=== PATIENT | male | born 1985 | race Caucasian/White ===

== ENCOUNTER 2017-07-07 18:33 | Emergency (ER) | payer OTHER ==
[2017-07-07] MEDS ORDERED: Ibuprofen TAB* 600 MG PO ONE (19:20)
--- NOTE | 2017-07-07 19:48 | RAD ---
Indication: Left wrist injury. 3 views of the wrist demonstrates no fracture. No other bone or joint abnormality is identified. No definite soft tissue injury is noted. No subcutaneous air is noted. Accessory ossicle is noted at the first metacarpal phalangeal joint. IMPRESSION: NO FRACTURE OF THE WRIST IS NOTED.
[2017-07-07] MEDS ORDERED: Amoxicillin/Clavulanate TAB* 875 MG PO ONE (20:28)
[2017-07-07 20:46] VITALS: BP 124/78
--- NOTE | 2017-07-07 21:20 | ED ---
Skin Complaint - HPI Summary HPI Summary: Patient is an otherwise healthy 31-year-old male presenting to the ED with left puncture wounds from a python bite approximately 2 hours prior to arrival. He was sent here from [facility] after evaluation and sent here to obtain a scan of the wrist. He endorses 8 out of 10 pain, worse with flexion and extension, pronation and supination. Pain is a 2 out of 10 at rest. There is some fluctuance and swelling to the right wrist directly located over where the injury took place. The Python is a Tiran Python which is nonvenomous. 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 He denies any other symptoms. There is a slight amount of ecchymosis to the dorsum of the wrist and ulnar side of the hand. - History of Current Complaint Chief Complaint: EDGeneral Time Seen by Provider: 07/07/17 18:50 Stated Complaint: SNAKE BITE Hx Obtained From: Patient Onset/Duration: Started Hours Ago Skin Exposure Onset/Duration: Hours Ago Timing: Constant Onset Severity: Moderate Current Severity: Moderate Pain Intensity: 0 Pain Scale Used: 0-10 Numeric Skin Location: Hand Character: Swelling, Pain, Redness Aggravating Symptom(s): Touch Alleviating Symptom(s): Cold Compresses Associated Signs & Symptoms: Tenderness Related History: Possible Reaction to: Animal PMH/Surg Hx/FS Hx/Imm Hx Previously Healthy: Yes - Immunization History Hx Pertussis Vaccination: No Immunizations Up to Date: Unable to Obtain/Confirm Infectious Disease History: No Infectious Disease History: Denies: Traveled Outside the [place] in Last 30 Days - Social History Occupation: Employed Full-time Lives: With Family Alcohol Use: None Hx Substance Use: No Substance Use Type: Reports: None Hx Tobacco Use: No Smoking Status (MU): Unknown if Ever Smoked Review of Systems Constitutional: Negative Negative: Fever, Chills, Fatigue, Skin Diaphoresis Eyes: Negative Cardiovascular: Negative Genitourinary: Negative Positive: no symptoms reported, see HPI Musculoskeletal: Negative Positive: Other - ecchymosis and swelling Psychological: Normal All Other Systems Reviewed And Are Negative: Yes Physical Exam Triage Information Reviewed: Yes Vital Signs On Initial Exam: Initial Vitals Temp Pulse Resp BP Pulse Ox 97.9 F 80 20 151/92 99 07/07/17 18:34 07/07/17 18:34 07/07/17 18:34 07/07/17 18:34 07/07/17 18:34 Vital Signs Reviewed: Yes Appearance: Positive: Well-Appearing, Well-Nourished Skin: Positive: Warm, Skin Color Reflects Adequate Perfusion, Other - Ecchymosis and swelling to the dorsum of the left wrist and ulnar side of the hand with small puncture wounds which are very superficial and not requiring repair Head/Face: Positive: Normal Head/Face Inspection Eyes: Positive: EOMI, GALA, Conjunctiva Clear Neck: Positive: Supple, No Lymphadenopathy Respiratory/Lung Sounds: Positive: Clear to Auscultation, Breath Sounds Present Cardiovascular: Positive: Normal, RRR, Pulses are Symmetrical in both Upper and Lower Extremities Neurological: Positive: Normal, Sensory/Motor Intact, Speech Normal Psychiatric: Positive: Normal, Affect/Mood Appropriate Diagnostics - Vital Signs Vital Signs Temp Pulse Resp BP Pulse Ox 07/07/17 20:45 98.0 F 76 17 124/78 100 07/07/17 18:34 97.9 F 80 20 151/92 99 - Laboratory Lab Statement: Any lab studies that have been ordered have been reviewed, and results considered in the medical decision making process. Course/Dx - Course Course Of Treatment: During the course of treatment, the patient is evaluated for a nonvenomous snake bite from a python approximately 2 hours prior to arrival. Xrays obtained which are negative for any crush injury or underlying injury. Slight swelling, ecchymosis and small puncture wounds are noted. He is given Augmentin 7 days. The left wrist was William wrapped to decrease swelling and for comfort. He is to ice several times per day. - Diagnoses Provider Diagnoses: Bitten by nonvenomous snake Discharge - Discharge Plan Condition: Stable Disposition: HOME Prescriptions: Amoxicillin/Clavulanate TAB* [Augmentin TAB 875*] 875 mg PO BID #13 tab traMADol TAB* [Ultram*] 50 mg PO Q8H PRN #12 tab MDD 3 PRN Reason: Pain Patient Education Materials: Snake Bite (ED) Referrals: [facility] - [place] DURAN [Primary Care Provider] - Additional Instructions: Ice to the area as much as possible Keep the William wrap applied for comfort If he develop any red streaking up or down from the wound, or develop fevers, return to the ED immediately Augmentin twice daily 7 days Images - Images Hands: 1 - Ecchymosis and swelling to the dorsum of the left wrist and ulnar side of the hand with small puncture wounds which are very superficial and not requiring repair
== END 2017-07-07 20:45 | disposition home or self-care (01) ==
LOC: ED 18:33
DX: S61.552A Open bite of left wrist, initial encounter (principal); W59.11XA Bitten by nonvenomous snake, initial encounter; Y92.89 Other specified places as the place of occurrence of the external cause
CPT/HCPCS: 99282; A9270-GY

== ENCOUNTER 2019-04-21 20:28 | Emergency (ER) | payer OTHER ==
--- NOTE | 2019-04-21 20:37 | ED ---
HPI Chest Pain - HPI Summary HPI Summary: 33-year-old male with significant past medical history of ADHD and status post ablation for SVT approximately 10 years ago since the emergency department today complaining of right-sided chest pain. 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 Patient's pain is made worse with laying supine. Patient is currently pain free and is resting comfortably on stretcher. Patient denies recent recreational drug use, alcohol use, smoking. Patient denies fever, abdominal pain, shortness of breath, pain with urination, rash, recent trauma. Family history significant for myocardial infarction. Social history is noncontributory. - History of Current Complaint Chief Complaint: EDAbdPain Hx Obtained From: Patient Timing: Intermittent, Lasting Minutes Initial Severity: Moderate Current Severity: None Pain Intensity: 0 Pain Scale Used: 0-10 Numeric Chest Pain Location: Right Lateral Chest Pain Radiates: No Character: Sharp/Stabbing Aggravating Factor(s): Position Alleviating Factor(s): Rest, Position, Oxygen, Upright Position Associated Signs and Symptoms: Positive: Negative - Allergy/Home Medications Allergies/Adverse Reactions: Allergies Allergy/AdvReac Type Severity Reaction Status Date / Time No Known Allergies Allergy Verified 12/20/18 13:26 PMH/Surg Hx/FS Hx/Imm Hx Cardiovascular History: Denies: Hx Aneurysm Respiratory History: Denies: Hx Asthma Sensory History: Denies: Hx Cataracts, Hx Deafness Opthamlomology History: Denies: Hx Cataracts Infectious Disease History: No Infectious Disease History: Denies: Traveled Outside the [place] in Last 30 Days - Family History Known Family History: Positive: None - Social History Alcohol Use: None Hx Substance Use: No Substance Use Type: Reports: None Hx Tobacco Use: No Smoking Status (MU): Never Smoked Tobacco Review of Systems Constitutional: Negative Eyes: Negative ENT: Negative Positive: Chest Pain Respiratory: Negative Gastrointestinal: Negative Genitourinary: Negative Musculoskeletal: Negative Skin: Negative Neurological: Negative Psychological: Normal All Other Systems Reviewed And Are Negative: Yes Physical Exam Triage Information Reviewed: Yes Vital Signs On Initial Exam: Initial Vitals Temp Pulse Resp BP Pulse Ox 96.9 F 70 16 133/97 96 04/21/19 20:33 04/21/19 20:33 04/21/19 20:33 04/21/19 20:33 04/21/19 20:33 Vital Signs Reviewed: Yes Appearance: Positive: Well-Appearing, No Pain Distress, Well-Nourished Skin: Positive: Warm, Skin Color Reflects Adequate Perfusion Eyes: Positive: EOMI, GALA ENT: Positive: Hearing grossly normal Respiratory/Lung Sounds: Positive: Clear to Auscultation, Breath Sounds Present Cardiovascular: Positive: RRR, S1, S2 Abdomen Description: Positive: Nontender, Soft, Other: - negative murphys sign. Negative: Distended, Guarding Bowel Sounds: Positive: Present Musculoskeletal: Positive: Strength/ROM Intact Neurological: Positive: Sensory/Motor Intact, Alert, Oriented to Person Place, Time, Normal Gait, Speech Normal Psychiatric: Positive: Normal AVPU Assessment: Alert Procedures - Sedation Patient Received Moderate/Deep Sedation with Procedure: No Diagnostics - Vital Signs Vital Signs Temp Pulse Resp BP Pulse Ox 04/21/19 20:33 96.9 F 70 16 133/97 96 - Laboratory Result Diagrams: 04/21/19 20:51 04/21/19 20:51 Lab Statement: Any lab studies that have been ordered have been reviewed, and results considered in the medical decision making process. Chest Pain Course/Dx - Course Course Of Treatment: The patient was evaluated in the emergency department for chest pain. An EKG was done which showed no evidence of myocardial Labs returned showing no leukocytosis, anemia,electrolyte abnormalities, normal blood glucose. TSH WNL. Troponin was 0.00. Serial troponins considered unnecessary as the likelihood of myocardial infarction was very low considering heart score. HEART score 1. PERC negative. Chest x-ray was not obtained due to patients lack of shortness of breath, cough, fever, hypoxia. Dr. Browning was involved in the case and agreed that Patients symptoms appear to be nonlife threatening and not requiring acute intervention at this time. He is to follow- up with his primary care provider in 3-5 days for further evaluation and management. - Chest Pain Differential Diagnosis/HQI/PQRI: Acute PA, ACS, Angina, CHF, Chest Wall, Pulmonary Edema, Pulmonary Embolism - Diagnoses Provider Diagnoses: Chest pain Discharge ED - Sign-Out/Discharge Documenting (check all that apply): Patient Departure - Discharge Plan Condition: Stable Disposition: HOME Patient Education Materials: Chest Pain (ED) Referrals: [facility] - [place] DURAN [Farooq., APPLICATION, OTHER] - 3 Days Additional Instructions: You were seen in the emergency department today for chest pain. There appears to be no life threatening pathology causing your symptoms which requires intervention at this time. I am unsure what's causing your symptoms however, cardiac origin cannot be ruled out. Please follow up with your primary care provider or poem writer for further evaluation and management of your symptoms and for possible outpatient echocardiogram and stress test. Please return to the emergency department immediately if you develop any new or worsening symptoms. - Billing Disposition and Condition Condition: STABLE Disposition: Home
[2019-04-21 20:57] LABS: ABS Basophils 0.1 10^3/ul (0-0.2); ABS Eosinophils 0.2 10^3/ul (0-0.6); ABS Lymphocytes 2.2 10^3/ul (1.0-4.8); ABS Monocytes 0.9 10^3/ul (0-0.8); ABS Neutrophils 5.2 10^3/ul (1.5-7.7); Eosinophil % 2.6 %; Hematocrit 44 % (42-52); Hemoglobin 15.4 g/dL (14.0-18.0); Lymphocyte % 25.9 %; Mean Corpuscular HGB Conc 35 g/dL (31-36); Mean Corpuscular Hemoglobin 30 pg (27-31); Mean Corpuscular Volume 86 fL (80-94); Mean Platelet Volume 9.3 fL (7.4-10.4); Platelet Count 249 10^3/uL (150-450); Red Blood Count 5.17 10^6 /uL (4.18-5.48); Red Cell Distribution Width 13 % (10-15); White Blood Count 8.6 10^3/uL (3.5-10.8)
[2019-04-21 21:14] LABS: Albumin 4.6 g/dL (3.2-5.2); Albumin/Globulin Ratio 1.8 (1-3); BUN/Creatinine Ratio 14.4 (8-20); Calcium 9.4 mg/dL (8.6-10.3); EGFR African American 109.2 (>60); EGFR Non-African American 90.3 (>60); Globulin 2.5 g/dL (2-4); Magnesium 2.3 mg/dL (1.9-2.7); Potassium 3.5 mmol/L (3.5-5.0); Total Bilirubin 0.8 mg/dL (0.2-1.0); Total Protein 7.1 g/dL (6.4-8.9)
[2019-04-21 21:36] LABS: TSH (Thyroid Stimulating Horm) 1.1 mcIU/mL (0.34-5.60)
[2019-04-21 21:52] VITALS: BP 126/93
== END 2019-04-21 21:51 | disposition home or self-care (01) ==
LOC: ED 20:28
DX: R07.89 Other chest pain (principal)
CPT/HCPCS: 36415; 80053; 83605; 83735; 84443; 84484; 85025; 93005; 99282